=== PATIENT | male | born 1985 | race Caucasian/White ===

== ENCOUNTER 2021-07-12 09:36 | Emergency (ER) | payer BC ==
[2021-07-12] MEDS ORDERED: diphenhydrAMINE 25 MG Cap PO ONE (09:57)
[2021-07-12] MEDS ORDERED: predniSONE 20 MG Tab PO ONE (09:57)
--- NOTE | 2021-07-12 10:02 | EDM.PDOC ---
ED HPI GENERAL MEDICAL PROBLEM - General Chief Complaint: Allergic Reaction Stated Complaint: ALLERGIC REACTION Time Seen by Provider: 07/12/21 09:53 - History of Present Illness INITIAL COMMENTS - FREE TEXT/NARRATIVE: History of present illness: [] The patient just finished a course of 10 days of amoxicillin for just general illness according to him says that yesterday began to have a rash. The rash is all over but it actually spares the palms and soles. He feels like he has little trouble breathing that has not changed in 24 hours. The patient never had such rash before. He did not have purulent tonsillitis or adenopathy. Review of systems: As per history of present illness and below otherwise all systems reviewed and negative. Past medical history: As per history of present illness and as reviewed below otherwise noncontributory. Surgical history: As per history of present illness and as reviewed below otherwise noncontributory. Social history: No reported history of drug or alcohol abuse. Family history: As per history of present illness and as reviewed below otherwise noncontributory. Physical exam: Constitutional - well developed, well-nourished and in no acute distress HEENT - normocephalic, no evidence of trauma - external nose and mouth normal - no mass in neck and no JVD - mucosae moist EYES - full EOM, PERRL, no icterus - no evidence of inflammation, injection, or drainage Respiratory - no respiratory distress, equal bilateral expansion, lungs clear to auscultation and no abnormal lung sounds Cardiovascular - Regular Rhythm with S1 and S2 appreciated and no murmur, gallop or rub. GI - abdomen soft without distension or organomegaly - normal bowel sounds - no guard or rebound Musculoskeletal no gross deformity of long bones or joints - no tenderness, swelling or edema Neurologic - Alert and oriented times four - CN II-XII grossly intact - motor sensory and coordination symmetrically normal Psychiatric - appropriate mood and affect with normal thought content Hematologic - No petechiae or purpura - mucosa appropriate color and sclera not pale - normal nail bed color and refill Integument -urticaria on the extremities and trunk sparing the palms and soles. No evidence of trauma - normal turgor Diagnostics: [] Therapeutics: [] Impression: [] Plan: [] Definitive disposition and diagnosis as appropriate pending reevaluation and review of above. - Related Data Allergies Allergy/AdvReac Type Severity Reaction Status Date / Time No Known Allergies Allergy Verified 07/12/21 09:56 Home Meds: Home Meds predniSONE [Prednisone] 60 mg PO DAILY 5 Days #15 tablet 07/12/21 [Rx] ED ROS ALLERGIC REACTION - Review of Systems Review Of Systems: Comprehensive ROS is negative, except as noted in HPI. ED EXAM GENERAL NO PERIP PULSE - Physical Exam Exam: See Below Text/Narrative:: My physical exam is in the HPI Course - Vital Signs Last Recorded V/S: Last Vital Signs Temp 36.8 C 07/12/21 09:52 Pulse 86 07/12/21 09:52 Resp 20 07/12/21 09:52 BP 109/67 07/12/21 09:52 Pulse Ox 98 07/12/21 09:52 - Orders/Labs/Meds Orders: Active Orders 24 hr Category Date Time Status diphenhydrAMINE [Benadryl] Med 07/12/21 09:57 Once 25 mg PO ONETIME ONE predniSONE Med 07/12/21 09:57 Once 60 mg PO ONETIME ONE Medication Orders Diphenhydramine HCl (Diphenhydramine 25 Mg Cap) 25 mg PO ONETIME ONE Stop: 07/12/21 09:58 Prednisone (Prednisone 20 Mg Tab) 60 mg PO ONETIME ONE Stop: 07/12/21 09:58 Meds: Medications Generic Name Dose Route Start Last Admin Trade Name Amilcarq PRN Reason Stop Dose Admin Diphenhydramine HCl 25 mg 07/12/21 09:57 Diphenhydramine 25 Mg Cap PO 07/12/21 09:58 ONETIME ONE Prednisone 60 mg 07/12/21 09:57 Prednisone 20 Mg Tab PO 07/12/21 09:58 ONETIME ONE Departure - Departure Time of Disposition: 09:59 Disposition: Home, Self-Care 01 Condition: Good Clinical Impression: Allergic drug rash - Discharge Information Prescriptions: predniSONE [Prednisone] 60 mg PO DAILY 5 Days #15 tablet Instructions: Allergies, Adult Referrals: PCP,None [Primary Care Provider] - Additional Instructions: Used to antihistamines. Benadryl and Pepcid are Seldane and Pepcid or Zyrtec and Pepcid Pepcid these are [id number]. The steroid prescription was available HEENT from 12-5 today. If you finish the steroids and have improved but then the rash recurs then that means somewhere in your environment you are still being exposed to what ever has caused this allergic rash. [facility] [address] [place] [address] [facility] [address] [place] [address] The following information is given to patients seen in the emergency department who are being discharged to home. This information is to outline your options for follow-up care. We provide all patients seen in our emergency department with a follow-up referral. The need for follow-up, as well as the timing and circumstances, are variable depending upon the specifics of your emergency department visit. If you don't have a primary care physician on staff, we will provide you with a referral. We always advise you to contact your personal physician following an emergency department visit to inform them of the circumstance of the visit and for follow-up with them and/or the need for any referrals to a consulting specialist. The emergency department will also refer you to a specialist when appropriate. This referral assures that you have the opportunity for follow-up care with a specialist. All of these measure are taken in an effort to provide you with optimal care, which includes your follow-up. Under all circumstances we always encourage you to contact your private physician who remains a resource for coordinating your care. When calling for follow-up care, please make the office aware that this follow-up is from your recent emergency room visit. If for any reason you are refused follow-up, please contact the Emergency Department at and asked to speak to the emergency department charge nurse. Sepsis Event Note (ED) - Evaluation Sepsis Screening Result: No Definite Risk - Focused Exam Vital Signs: Vital Signs Temp Pulse Resp BP Pulse Ox 07/12/21 09:52 36.8 C 86 20 109/67 98 - My Orders Last 24 Hours: My Active Orders 07/12/21 09:57 diphenhydrAMINE [Benadryl] 25 mg PO ONETIME ONE predniSONE 60 mg PO ONETIME ONE - Assessment/Plan Last 24 Hours: My Active Orders 07/12/21 09:57 diphenhydrAMINE [Benadryl] 25 mg PO ONETIME ONE predniSONE 60 mg PO ONETIME ONE
== END 2021-07-12 10:13 | disposition home or self-care (01) ==
LOC: MW.ED 09:36
DX: L50.0 Allergic urticaria (principal); L27.0 Generalized skin eruption due to drugs and medicaments taken internally; T36.0X5A Adverse effect of penicillins, initial encounter
CPT/HCPCS: 99282; A9270